=== PATIENT | male | born 1985 | race Two or more races ===

== ENCOUNTER 2017-01-15 16:52 | Emergency (ER) | payer SELFPAY | END 2017-01-15 17:00 | disposition left against medical advice (07) | LOC: ER 16:52 | DX: Z53.21 Procedure and treatment not carried out due to patient leaving prior to being seen by health care provider (principal) ==

== ENCOUNTER 2018-06-26 08:01 | Emergency (ER) | payer SELFPAY ==
[2018-06-26] MEDS ORDERED: CYCLOBENZAPRINE HCL 10 MG TABLET PO ONE (08:57)
[2018-06-26] MEDS ORDERED: OXYCODONE-ACETAMINOPHEN 5-325 MG TABLET PO ONE (08:57)
--- NOTE | 2018-06-26 09:04 | ER Document Report ---
HPI - HPI Patient complains to provider of: Low back pain Onset: Yesterday Onset/Duration: Gradual Quality of pain: Sharp Pain Level: 4 Context: Patient presents complaining of low back pain that started yesterday. Patient denies any injury fever or urinary symptoms at this time. Patient does have a history of back pain in the past and states that his pain today is in the location of his chronic back pain. Patient states that his pain is not usually this severe. Patient denies any history of IV drug use. Patient denies any urinary retention or incontinence. Associated Symptoms: denies: Fever, Headache Exacerbated by: Movement, Walking Relieved by: Denies Similar symptoms previously: Yes Recently seen / treated by doctor: No - ROS ROS below otherwise negative: Yes Systems Reviewed and Negative: Yes All other systems reviewed and negative - CONSTITUTIONAL Constitutional: DENIES: Fever, Chills - NEURO Neurology: DENIES: Headache, Weakness - GASTROINTESTINAL Gastrointestinal: DENIES: Nausea - MUSCULOSKELETAL Musculoskeletal: REPORTS: Extremity pain, Back Pain - DERM Skin Color: Normal Skin Problems: None Past Medical History - General Information source: Patient - Social History Smoking Status: Never Smoker Chew tobacco use (# tins/day): No Frequency of alcohol use: None Drug Abuse: None Family History: None Patient has suicidal ideation: No Patient has homicidal ideation: No Renal/ Medical History: Denies: Hx Peritoneal Dialysis Musculoskeletal Medical History: Reports Other - Low back pain Traumatic Medical History: Reports: Hx Fractures - hand Surgical Hx: Negative - Immunizations Hx Diphtheria, Pertussis, Tetanus Vaccination: Yes Vertical Provider Document - CONSTITUTIONAL Agree With Documented VS: Yes Exam Limitations: No Limitations General Appearance: WD/WN, No Apparent Distress - INFECTION CONTROL TRAVEL OUTSIDE OF THE [place] IN LAST 30 DAYS: No - HEENT HEENT: Atraumatic, Normocephalic - NECK Neck: Normal Inspection - RESPIRATORY Respiratory: Breath Sounds Normal, No Respiratory Distress - CARDIOVASCULAR Cardiovascular: Regular Rate, Regular Rhythm - GI/ABDOMEN Gastrointestinal: Abdomen Soft - BACK Back: Abnormal Inspection - Right lumbar paraspinal tenderness, right SI joint tenderness. No midline tenderness step-off or deformity. negative: CVA Tenderness-Right, CVA Tenderness-Left - MUSCULOSKELETAL/EXTREMETIES Musculoskeletal/Extremeties: MAEW, FROM - NEURO Level of Consciousness: Awake, Alert, Appropriate Motor/Sensory: No Motor Deficit - DERM Integumentary: Warm, Dry, No Rash Course - Re-evaluation Re-evalutation: 06/26/18 09:49 The patient presents with low back pain without signs of spinal cord compression , cauda equina syndrome, infection, aneurysm, or other serious etiology. The patient is neurologically intact. Given the extremely risk of these diagnoses further testing and evaluation for these possibilities does not appear to be indicated at this time. Patient has been instructed to return if the symptoms worsen or change in any way. - Vital Signs Vital signs: Temp Pulse Resp BP Pulse Ox 98.0 F 65 20 101/59 L 96 06/26/18 08:08 06/26/18 08:08 06/26/18 08:08 06/26/18 08:08 06/26/18 08:08 - Diagnostic Test Radiology reviewed: Reports reviewed Discharge - Discharge Clinical Impression: Low back pain Qualifiers: Chronicity: unspecified Back pain laterality: right Sciatica presence: unspecified whether sciatica present Qualified Code(s): M54.5 - Low back pain Condition: Stable Disposition: HOME, SELF-CARE Instructions: Ice Packs ([facility]), Low Back Pain ([facility]), Muscle Relaxers ([facility]) Additional Instructions: Return immediately for any new or worsening symptoms Followup with your primary care provider, call tomorrow to make a followup appointment Prescriptions: Cyclobenzaprine HCl [Flexeril 10 Mg Tablet] 10 mg PO TID #15 tablet Naproxen [Naprosyn 250 Nmg Tablet] 1 tab PO BID #14 tablet Forms: Return to Work Referrals: [facility] [Provider Group] - Follow up as needed [facility] [Provider Group] - Follow up as needed
--- NOTE | 2018-06-26 09:32 | RADIOLOGY REPORT (SQ) ---
EXAM DESCRIPTION: L SPINE WHOLE COMPLETED DATE/TIME: 06/26/2018 9:22 am REASON FOR STUDY: low back pain COMPARISON: 01/10/2015. NUMBER OF VIEWS: Five views including obliques. TECHNIQUE: AP, lateral, oblique, and sacral radiographic images acquired of the lumbar spine. LIMITATIONS: None. FINDINGS: MINERALIZATION: Normal. SEGMENTATION: Normal. No transitional anatomy. ALIGNMENT: Normal. VERTEBRAE: Maintained height. No fracture or worrisome bone lesion. DISCS: Preserved height. No significant osteophytes or end plate irregularity. POSTERIOR ELEMENTS: Pedicles and facets are intact. No pars defect or posterior arch defects. HARDWARE: None in the spine. PARASPINAL SOFT TISSUES: Normal. PELVIS: Intact as visualized. No fractures or worrisome bone lesions. SI joints intact. OTHER: No other significant finding. IMPRESSION: NORMAL 5 VIEW LUMBAR SPINE. TECHNICAL DOCUMENTATION: JOB ID: [id number] [employer]- All Rights Reserved Reading location - IP/workstation name: [email or web address]
[2018-06-26] MEDS ORDERED: LIDOCAINE 5% (700 MG) TRANSDERMAL ADH..PATCH TP ONE (09:47)
[2018-06-26 10:15] VITALS: BP 97/50
== END 2018-06-26 10:16 | disposition home or self-care (01) ==
LOC: ER 08:01
DX: M54.5 Low back pain (principal)
CPT/HCPCS: 72110; 99283

== ENCOUNTER 2019-01-31 14:40 | Emergency (ER) | payer SELFPAY ==
[2019-01-31 14:50] VITALS: BP 127/90
[2019-01-31] MEDS ORDERED: DIPH/PERTUSS(ACELL)/TETANUS VAC/PF 0.5 ML SYR (>=10YO) IM ONE (14:59)
[2019-01-31] MEDS ORDERED: OXYCODONE-ACETAMINOPHEN 5-325 MG TABLET PO ONE (14:59)
[2019-01-31] MEDS ORDERED: IBUPROFEN 800 MG TABLET PO ONE (15:00)
--- NOTE | 2019-01-31 15:12 | ER Document Report ---
ED Medical Screen (RME) - General Chief Complaint: Head Injury with LOC Stated Complaint: HEAD INJURY Time Seen by Provider: 01/31/19 14:56 Notes: 33-year-old male coming in today with head injury. He was stooped over try to get something out of the lower cabinet and came up and struck his head full strength against the cabinet door that was open above him. Questionable loss of consciousness per patient. Small gash to the top of his head. Last tetanus unknown. Also complaining of severe neck pain secondary to the injury. I have treated and performed a rapid initial assessment of this patient. A comprehensive ED assessment and evaluation of the patient, analysis of test results and completion of medical decision making process will be conducted by additional ED providers. PHYSICAL EXAMINATION: GENERAL: Well-appearing, well-nourished and in no acute distress. A&Ox4. Answers questions appropriately. LUNGS: Breath sounds clear to auscultation bilaterally and equal. No wheezes rales or rhonchi. HEART: Regular rate and rhythm without murmurs, rubs, gallops. Head: 1cm gash to the mid top of scalp. No active bleeding. Neuro: No focal deficit. TRAVEL OUTSIDE OF THE [place] IN LAST 30 DAYS: No - Related Data Allergies/Adverse Reactions: No Known Allergies Allergy (Verified 01/31/19 14:58) Past Medical History - Social History Chew tobacco use (# tins/day): No Frequency of alcohol use: None Drug Abuse: None Renal/ Medical History: Denies: Hx Peritoneal Dialysis Traumatic Medical History: Reports: Hx Fractures - hand - Immunizations Hx Diphtheria, Pertussis, Tetanus Vaccination: Yes Physical Exam - Vital signs Vitals: Temp Pulse Resp BP Pulse Ox 98.2 F 65 20 127/90 H 96 01/31/19 14:49 01/31/19 14:49 01/31/19 14:49 01/31/19 14:49 01/31/19 14:49 Course - Vital Signs Vital signs: Temp Pulse Resp BP Pulse Ox 98.2 F 65 20 127/90 H 96 01/31/19 14:49 01/31/19 14:49 01/31/19 14:49 01/31/19 14:49 01/31/19 14:49
--- NOTE | 2019-01-31 15:50 | RADIOLOGY REPORT (SQ) ---
EXAM DESCRIPTION: CT CERVICAL SPINE WITHOUT COMPLETED DATE/TIME: 01/31/2019 3:39 pm REASON FOR STUDY: head injury COMPARISON: None. TECHNIQUE: Axial images acquired through the cervical spine without intravenous contrast. Images re viewed with lung, soft tissue and bone windows. Reconstructed coronal and sagittal MPR images review ed. Images stored on PACS. All CT scanners at this facility use dose modulation, iterative reconstruction, and/or weight based d osing when appropriate to reduce radiation dose to as low as reasonably achievable (ALARA). [facility]: Dose Right [facility]: CareDose [facility]: Dose Right [facility]: Teradose 4D [facility]: [employer] RADIATION DOSE: CT Rad equipment meets quality standard of care and radiation dose reduction techniq ues were employed. CTDIvol: 17.0 mGy. DLP: 414 mGy-cm. mGy. LIMITATIONS: None. FINDINGS: ALIGNMENT: Anatomic. MINERALIZATION: Normal. VERTEBRAL BODIES: No fractures or dislocation. DISCS: No significant disc disease. FACETS, LATERAL MASSES, POSTERIOR ELEMENTS: No fractures. No dislocation. No acute findings. HARDWARE: None in the spine. VISUALIZED RIBS: No fractures. LUNG APICES AND SOFT TISSUES: No significant or acute findings. OTHER: No other significant finding. IMPRESSION: No fracture or static subluxation of the cervical spine. TECHNICAL DOCUMENTATION: JOB ID: [id number] Quality ID # [id number]: Final reports with documentation of one or more dose reduction techniques (e.g., Au tomated exposure control, adjustment of the mA and/or kV according to patient size, use of iterative reconstruction technique) 2010 [employer]- All Rights Reserved Reading location - IP/workstation name: [email or web address]
--- NOTE | 2019-01-31 15:52 | RADIOLOGY REPORT (SQ) ---
EXAM DESCRIPTION: CT HEAD WITHOUT COMPLETED DATE/TIME: 01/31/2019 3:40 pm REASON FOR STUDY: head injury COMPARISON: None. TECHNIQUE: Axial images acquired through the brain without intravenous contrast. Images reviewed wi th bone, brain and subdural windows. Additional sagittal and coronal reconstructions were generated. Images stored on PACS. All CT scanners at this facility use dose modulation, iterative reconstruction, and/or weight based d osing when appropriate to reduce radiation dose to as low as reasonably achievable (ALARA). [facility]: Dose Right [facility]: CareDose [facility]: Dose Right [facility]: Teradose 4D [facility]: [employer] RADIATION DOSE: CT Rad equipment meets quality standard of care and radiation dose reduction techniq ues were employed. CTDIvol: 53.2 mGy. DLP: 1124 mGy-cm. mGy. LIMITATIONS: None. FINDINGS: VENTRICLES: Normal size and contour. CEREBRUM: No masses. No hemorrhage. No midline shift. No evidence for acute infarction. Normal gra y/white matter differentiation. No areas of low density in the white matter. CEREBELLUM: No masses. No hemorrhage. No alteration of density. No evidence for acute infarction. EXTRAAXIAL SPACES: No fluid collections. No masses. ORBITS AND GLOBE: No intra- or extraconal masses. Normal contour of globe without masses. CALVARIUM: No fracture. PARANASAL SINUSES: No fluid or mucosal thickening. SOFT TISSUES: No mass or hematoma. OTHER: No other significant finding. IMPRESSION: No acute intracranial pathology. EVIDENCE OF ACUTE STROKE: NO. COMMENT: Quality ID # [id number]: Final reports with documentation of one or more dose reduction techniques (e.g., Automated exposure control, adjustment of the mA and/or kV according to patient size, use of iterative reconstruction technique) TECHNICAL DOCUMENTATION: JOB ID: [id number] [employer]- All Rights Reserved Reading location - IP/workstation name: [email or web address]
[2019-01-31] MEDS ORDERED: HYDROCODONE/ACETAMINOPHEN 5-325 MG (6 TAB/ER DISP) PO PRN (18:41)
--- NOTE | 2019-01-31 18:41 | ER Document Report ---
ED General - General Chief Complaint: Head Injury with LOC Stated Complaint: HEAD INJURY Time Seen by Provider: 01/31/19 14:56 Mode of Arrival: Ambulatory Information source: Patient TRAVEL OUTSIDE OF THE [place] IN LAST 30 DAYS: No - HPI Patient complains to provider of: Head and neck pain Onset: Just prior to arrival Onset/Duration: Sudden Quality of pain: Sharp Severity: Severe Associated symptoms: Other - Near syncope, neck pain, puncture wound Exacerbated by: Denies Relieved by: Denies Similar symptoms previously: No Recently seen / treated by doctor: No Notes: Patient is an otherwise healthy 33-year-old male coming in today with history of head injury and neck injury. He was bending over to get something out of a lower cabinet and stood up suddenly and struck complains of significant neck pain ever since the incident. - Related Data Allergies/Adverse Reactions: No Known Allergies Allergy (Verified 01/31/19 14:58) Past Medical History - General Information source: Patient - Social History Smoking Status: Never Smoker Chew tobacco use (# tins/day): No Frequency of alcohol use: None Drug Abuse: None Family History: None, Reviewed & Not Pertinent Patient has suicidal ideation: No Patient has homicidal ideation: No Renal/ Medical History: Denies: Hx Peritoneal Dialysis Traumatic Medical History: Reports: Hx Fractures - hand - Immunizations Hx Diphtheria, Pertussis, Tetanus Vaccination: Yes Review of Systems - Review of Systems Notes: Constitutional: No fevers. No chills. EENT: No eye redness. No eye pain. No ear pain. No sore throat. Cardiovascular: No chest pain. No palpitations. Respiratory: No cough. No shortness of breath. No respiratory distress. Gastrointestinal: No abdominal pain. No nausea, vomiting, or diarrhea. Genitourinary: Atraumatic. No lesions. No pain. No discharge. Musculoskeletal: Positive cervical spine pain Skin: Positive puncture wound scalp Lymphatic: No swollen lymph nodes. Neurologic: No headache. No syncope. Psychiatric: No suicidal or homicidal ideation. Physical Exam - Vital signs Vitals: Temp Pulse Resp BP Pulse Ox 98.2 F 65 20 127/90 H 96 01/31/19 14:49 01/31/19 14:49 01/31/19 14:49 01/31/19 14:49 01/31/19 14:49 - Notes Notes: General: Well-developed, well-nourished. In no acute distress. Non-toxic appearing. Cardiac: Well-perfused. Regular rate and rhythm. No murmurs, rubs, or gallops. Pulmonary: No respiratory distress. No cyanosis. Bilateral lung fiels are clear to auscultation. Abdominal: Non-distended. Non-rigid. Bowels sounds are present in all four quadrants. No guarding or rebound. HEENT: Less than 1 cm puncture wound to the top of scalp. Blood is dried. No active bleeding. Conjunctivae not reddened. No tearing. PERRL. EOMI. Orbits atraumatic. No periorbital swelling or erythema. Oropharynx is without erythema, swelling, or exudates. Neck: Midline tenderness to palpation without step-off Dermatologic: Warm with good turgor. No rash. Atraumatic. Chest: Atraumatic. No chest wall tenderness to palpation. Musculoskeletal: Moves all extremities well. No range of motion deficits. no muscular or joint tenderness. No paraspinal muscle tenderness. no midline spinal tenderness or step-off. Genitourinary: Examination deferred Neurologic: No gross neurologic deficits. Psychiatric: Normal mood. Course - Re-evaluation Re-evalutation: 01/31/19 18:38 CT head and C-spine negative. Tdap given. Wound on top of scalp does not need any suturing or stapling. Patient is still in considerable amount of pain. Will discharge him home with [place] pack - Vital Signs Vital signs: Temp Pulse Resp BP Pulse Ox 98.2 F 65 20 127/90 H 96 01/31/19 14:49 01/31/19 14:49 01/31/19 14:49 01/31/19 14:49 01/31/19 14:49 Discharge - Discharge Clinical Impression: Head injury Qualifiers: Encounter type: initial encounter Qualified Code(s): S09.90XA - Unspecified injury of head, initial encounter Neck strain Qualifiers: Encounter type: initial encounter Qualified Code(s): S16.1XXA - Strain of muscle, fascia and tendon at neck level, initial encounter Puncture wound of scalp Qualifiers: Encounter type: initial encounter Qualified Code(s): S01.03XA - Puncture wound without foreign body of scalp, initial encounter Condition: Good Disposition: HOME, SELF-CARE Instructions: Head Injury Precautions ([facility]), Muscle Strain ([facility]), Puncture Wound ([facility]) Additional Instructions: Keep the wound on the top of your head clean with soap and water. Recommend a small coating of triple antibiotic ointment to prevent infection. Use the provided pain medication for severe pain only. Mild to moderate pain try to manage with Tylenol or ibuprofen. Referrals: [facility] [Provider Group] - Follow up as needed
== END 2019-01-31 18:52 | disposition home or self-care (01) ==
LOC: ER 14:40
DX: S09.90XA Unspecified injury of head, initial encounter (principal); S16.1XXA Strain of muscle, fascia and tendon at neck level, initial encounter; S01.03XA Puncture wound without foreign body of scalp, initial encounter; R51 Headache; M54.2 Cervicalgia; W22.8XXA Striking against or struck by other objects, initial encounter
CPT/HCPCS: 99283; 90471; 70450; 72125; 90715; L0120

== ENCOUNTER 2019-09-02 15:34 | Emergency (ER) | payer SELFPAY ==
[2019-09-02 15:40] VITALS: BP 119/78
[2019-09-02] MEDS ORDERED: LIDOCAINE 5% (700 MG) TRANSDERMAL ADH..PATCH TP ONE (15:44)
[2019-09-02] MEDS ORDERED: KETOROLAC TROMETHAMINE 60 MG/2 ML SDV IM ONE (15:44)
--- NOTE | 2019-09-02 15:47 | ER Document Report ---
HPI - HPI Time Seen by Provider: 09/02/19 15:41 Pain Level: 5 Notes: Patient is a 34-year-old male with no significant past medical history who presents to the ED complaining of bilateral lower back pain x1-2 days. Patient states that bending twisting of the trunk make his pain worse. Pain will occasionally radiate to his right leg. He is eating and drinking without any difficulties. He is urinating normally and having normal bowel movements. He has not had any injections or procedures to his lower back. Denies any IV drug abuse. No other concerns or complaints. Denies any headache, fever, neck pain, changes in vision/speech/mentation/hearing, URI, sore throat, chest pain, palpitations, syncope, cough, shortness of breath, wheeze, dyspnea, abdominal pain, nausea/vomiting/diarrhea, urinary retention, dysuria, hematuria, loss of control of bowel or bladder, saddle anesthesia, muscle paralysis/weakness, or rash. - ROS Systems Reviewed and Negative: Yes All other systems reviewed and negative - REPRODUCTIVE Reproductive: DENIES: : Past Medical History - Social History Smoking Status: Unknown if Ever Smoked Frequency of alcohol use: None Drug Abuse: None Family History: None, Reviewed & Not Pertinent Patient has suicidal ideation: No Patient has homicidal ideation: No Renal/ Medical History: Denies: Hx Peritoneal Dialysis Traumatic Medical History: Reports: Hx Fractures - hand - Immunizations Hx Diphtheria, Pertussis, Tetanus Vaccination: Yes Vertical Provider Document - CONSTITUTIONAL Agree With Documented VS: Yes Notes: PHYSICAL EXAMINATION: GENERAL: Well-appearing, well-nourished and in no acute distress. LUNGS: Breath sounds clear to auscultation bilaterally and equal. No wheezes rales or rhonchi. HEART: Regular rate and rhythm without murmurs, rubs, gallops. ABDOMEN: Soft, nontender, nondistended abdomen. No guarding, no rebound. Normal bowel sounds present. No CVA tenderness bilaterally. No pulsatile mass Musculoskeletal: LE's b/l: FROM to passive/active. Strength 5+/5. No deficits noted. No bony tenderness of extremities. Back: FROM to passive/active. Strength 5+/5. No vertebral point tenderness, stepoffs, or deformities. No other bony tenderness, erythema, swelling, or ecchymosis. SLR negative b/l. + Reproducible tenderness to the L-paraspinal mm b/l. Mild spasming. No SI jt tenderness. No foot drop Extremities: No cyanosis, clubbing, or edema b/l. Peripheral pulses 2+. Capillary refill less than 2 seconds. NEUROLOGICAL: Normal speech, normal gait. Normal sensory, motor exams. Reflexes 2+ b/l. PSYCH: Normal mood, normal affect. SKIN: Warm, Dry, normal turgor, no rashes or lesions noted. - INFECTION CONTROL TRAVEL OUTSIDE OF THE [place] IN LAST 30 DAYS: No Course - Re-evaluation Re-evalutation: 09/02/19 15:46 Patient is an afebrile, well-hydrated,34-year-old male who presents to the ED with bilateral low back pain. Vitals are acceptable. PE is otherwise unremarkable for any focal neurological deficits. Patient was given Toradol and a Lidoderm patch. He has no significant tachycardia, tachypnea, or hypoxia. He is nontoxic-appearing and is tolerating p.o. without difficulties. There are no signs of infection. No other red flag symptoms noted. No other labs or imaging warranted at this time based on H&P. Low suspicion for any meningitis, fracture, expanding/ruptured AAA, cauda equina syndrome, epidural mass lesion/abscess, herniated disc causing severe spinal stenosis, or other systemic infection at this time. Patient is aware that his condition can change from initial presentation and that he needs monitor symptoms closely for any acute changes. I will send him home with a prescription for Robaxin and Motrin. Conservative measures otherwise for symptoms. Recheck with your PCM in 3-5 days. Consider consult with orthopedic/physical therapy. Return to the ED with any worsening/concerning symptoms otherwise as reviewed discharge. Patient is in agreement. - Vital Signs Vital signs: Temp Pulse Resp BP Pulse Ox 98.1 F 74 18 119/78 100 09/02/19 15:39 09/02/19 15:39 09/02/19 15:39 09/02/19 15:39 09/02/19 15:39 Discharge - Discharge Clinical Impression: Low back pain Qualifiers: Chronicity: acute Back pain laterality: bilateral Sciatica presence: unspecified whether sciatica present Qualified Code(s): M54.5 - Low back pain Condition: Stable Disposition: HOME, SELF-CARE Instructions: Low Back Pain ([facility]), Muscle Relaxers ([facility]) Additional Instructions: Rest, Ice Tylenol/ibuprofen as needed Light stretches daily Strength exercises as able Moist heat and massage may help F/u with your PCP in 3-5 days for a recheck Consider consult(s) with Orthopedics/physical therapy for ongoing/worsening symptoms Return to the ED with any worsening symptoms and/or development of fever, headache, chest pain, palpitations, syncope, shortness of breath, trouble breathing, abdominal pain, n/v/d, blood in stool/urine, loss of control of bowel/bladder, urinary retention, muscle weakness/paralysis, saddle anesthesia, numbness/tingling, or other worsening symptoms that are concerning to you. Prescriptions: Ibuprofen [Motrin 800 mg Tablet] 800 mg PO Q8H PRN #15 tab PRN Reason: Methocarbamol [Robaxin 750 mg Tablet] 750 mg PO TID PRN #10 tablet PRN Reason: Forms: Return to Work Referrals: [facility] [Provider Group] - Follow up as needed
== END 2019-09-02 16:18 | disposition home or self-care (01) ==
LOC: ER 15:34
DX: M54.5 Low back pain (principal)
CPT/HCPCS: 99283; 96372; J1885

== ENCOUNTER 2019-12-16 20:26 | Emergency (ER) | payer SELFPAY ==
--- NOTE | 2019-12-16 21:45 | ER Document Report ---
Entered by EDDIE CARRENO SCRIBE 12/16/192118 Acting as scribe for:JOIE DEMPSEY IV, MD ED GI/ - General Chief Complaint: Testicular Pain Stated Complaint: TESTICULAR PAIN Time Seen by Provider: 12/16/19 20:57 Mode of Arrival: Ambulatory Information source: Patient Notes: This 34 year old male patient presents to the ED today with complaints of sudden onset severe right testicular pain that started x3 hours prior to arrival. Patient states that the veins in the right testicle appear swollen and bulging. He notes that he is concerned for testicular torsion. Denies burning with urination or any other urinary symptoms. Denies fever, penile discharge, or trauma. He admits that x2-3 days ago, he noticed that his sperm was a yellow/orange color, which is abnormal for him. He states that he has only 1 partner who is his and that they do engage in anal intercourse. TRAVEL OUTSIDE OF THE [place] IN LAST 30 DAYS: No - Related Data Allergies/Adverse Reactions: No Known Allergies Allergy (Verified 12/16/19 20:38) Past Medical History - General Information source: Patient, [facility] Records - Social History Smoking Status: Former Smoker Cigarette use (# per day): No Chew tobacco use (# tins/day): No Smoking Education Provided: No Drug Abuse: Marijuana Family History: Reviewed & Not Pertinent Patient has suicidal ideation: No Patient has homicidal ideation: No Traumatic Medical History: Reports: Hx Fractures - hand Surgical Hx: Negative - Immunizations Hx Diphtheria, Pertussis, Tetanus Vaccination: Yes Review of Systems - Review of Systems Constitutional: See HPI. denies: Fever EENT: No symptoms reported Cardiovascular: No symptoms reported Respiratory: No symptoms reported Gastrointestinal: No symptoms reported Genitourinary: See HPI. denies: Burning, Dysuria, Frequency, Hematuria Male Genitourinary: See HPI, Testicular pain. denies: Penile discharge Musculoskeletal: No symptoms reported Skin: No symptoms reported Hematologic/Lymphatic: No symptoms reported Neurological/Psychological: No symptoms reported -: Yes All other systems reviewed and negative Physical Exam - Vital signs Vitals: Temp Pulse Resp BP Pulse Ox 97.7 F 72 16 113/59 L 96 12/16/19 20:31 12/16/19 20:31 12/16/19 20:31 12/16/19 20:31 12/16/19 20:31 - General General appearance: Appears well, Alert In distress: None - HEENT Head: Normocephalic, Atraumatic Eyes: Normal Pupils: PERRL - Respiratory Respiratory status: No respiratory distress Chest status: Nontender Breath sounds: Normal Chest palpation: Normal - Cardiovascular Rhythm: Regular Heart sounds: Normal auscultation Murmur: No Friction rub: No Gallop: None auscultated - Abdominal Inspection: Normal Distension: No distension Bowel sounds: Normal Tenderness: Nontender - Abdomen soft Organomegaly: No organomegaly - Genitourinary Cremasteric reflex: Normal Notes: Right inferior testicle is tender to palpation. No hernia or erythema appreciated. No discharge noted from urethral meatus. Circumcised. - Back Back: Normal, Nontender - Extremities General upper extremity: Normal inspection General lower extremity: Normal inspection - Neurological Neuro grossly intact: Yes - Psychological Associated symptoms: Normal affect, Normal mood - Skin Skin Temperature: Warm Skin Moisture: Dry Skin Color: Normal Course - Re-evaluation Re-evalutation: 12/16/19 22:39 Results of ED MSE discussed with patient. All questions were answered. Emergency signs and symptoms, reasons to return to the emergency department discussed with patient. - Vital Signs Vital signs: Temp Pulse Resp BP Pulse Ox 98.4 F 74 18 107/57 L 100 12/16/19 22:22 12/16/19 22:22 12/16/19 22:22 12/16/19 22:22 12/16/19 22:22 - Laboratory Laboratory results interpreted by me: 12/16/19 21:47 Urine Protein 30 H - Diagnostic Test Radiology reviewed: Reports reviewed Discharge - Discharge Clinical Impression: Epididymitis Condition: Good Disposition: HOME, SELF-CARE Instructions: Epididymitis ([facility]) Additional Instructions: Return to the Emergency Department without delay if any worse. HOME CARE INSTRUCTIONS & INFORMATION: Thank you for choosing us for your medical needs. We hope you're satisfied with the care you received. After you leave, you must properly care for your problem and, at the same time, observe its progress. Any condition can change. Some illnesses can change rapidly over hours or days. If your condition worsens, return to the Emergency Department or see your physician promptly. ABOUT YOUR X-RAYS AND EKG'S: If you had an EKG or X-rays taken, they have been read by the Emergency Physician. The X-rays and EKG's will also be read by a Radiologist or Tail Board Worker within 24 hours. If discrepancies are noted, you will be notified by telephone. Please be certain the ED has a correct telephone number & address where you can be reached. Also, realize that some fractures or abnormalities do not show up on initial X-rays. If your symptoms continue, see your physician. ABOUT YOUR LABORATORY TEST: If you had laboratory tests, the results have been reviewed by the Emergency Physician. Some test results (for example cultures) may not be available for several days. You will be contacted if any test result shows you need additional treatment. Please be certain the ED has a correct telephone number and address where you can be reached. ABOUT YOUR MEDICATIONS: You will receive instructions on how to take your medicine on the prescription label you receive. Additional information may be provided by the Pharmacy. If you have questions afterwards, call the ED for clarification or further instructions. Some prescribed medications may cause drowsiness. Do not perform tasks such as driving a car or operating machinery without consulting your Pharmacist. If you feel you need a refill of pain medication, your condition will need re-evaluation. Please do not call for a refill of any medication. ABOUT YOUR SIGNATURE: Signature of this document acknowledges to followin. Understanding that you received emergency treatment and that you may be released before al medical problems are known or treated. Please be certain the ED has a correct phone number & address where you can be reached. 2. Acknowledgement that you will arrange for follow-up care as recommended. 3. Authorization for the Emergency Physician to provide information to your follow-up Physician in order to maximize your care. AT ANY TIME, IF YOUR SYMPTOMS CHANGE SIGNIFICANTLY OR WORSEN OR YOU DEVELOP NEW SYMPTOMS, RETURN TO THE EMERGENCY DEPARTMENT IMMEDIATELY FOR RE-EVALUATION. OUR GOAL IS TO PROVIDE EXCELLENT MEDICAL CARE! WE HOPE THAT WE HAVE MET YOUR EXPECTATIONS DURING YOUR EMERGENCY DEPARTMENT VISIT AND THAT YOU FEEL YOU HAVE RECEIVED EXCELLENT CARE! Prescriptions: Levofloxacin [Levaquin 500 mg Tablet] 500 mg PO DAILY 9 Days #9 tablet Referrals: YUMIKO HAQUE MD [HONORARY] - Follow up as needed I personally performed the services described in the documentation, reviewed and edited the documentation which was dictated to the scribe in my presence, and it accurately records my words and actions.
--- NOTE | 2019-12-16 21:58 | RADIOLOGY REPORT (SQ) ---
EXAM DESCRIPTION: US SCROTUM COMPLETED DATE/TME: 12/16/2019 00:00 CLINICAL HISTORY: 34 years, Male, PAIN COMPARISON: None. TECHNIQUE: Axial 2-D grayscale images of the scrotum were acquired. Doppler was utilized. LIMITATIONS: None. FINDINGS: Right testicle measures 4.6 x 2.2 x 3.1 cm in size. It demonstrates normal echogenicity and normal low resistance arterial waveforms. In area of localized heterogenous echogenicity is noted just inferior to the right testicle with associated hyperemia. It is uncertain whether this is located about the expected course of epididymal body and tail. However, the right epididymal head appears normal, measuring 0.9 x 0.8 x 1.2 cm in size. Left testicle measures 4.2 x 1.9 x 2.8 cm in size. It demonstrates normal echogenicity and normal low resistance arterial waveforms. Left epididymal head measures 1.0 x 0.9 x 1.0 cm in size. IMPRESSION: Findings indicate right epididymitis, particularly involving the epididymal body and tail. Otherwise, normal sonographic appearance of the testicles. copyright 2010 [employer]- All Rights Reserved
[2019-12-16 22:03] LABS: AMORPHOUS SEDIMENT,URINE TRACE /HPF; APPEARANCE,URINE CLOUDY; BILIRUBIN,URINE NEGATIVE (NEGATIVE); COLOR,URINE YELLOW; GLUCOSE, URINE NEGATIVE (NEGATIVE); KETONES,URINE NEGATIVE (NEGATIVE); LEUKOCYTE ESTERASE,URINE NEGATIVE (NEGATIVE); NITRITE,URINE NEGATIVE (NEGATIVE); PROTEIN,URINE 30 mg/dL (NEGATIVE); URINE SPECIFIC GRAVITY 1.021; UROBILINOGEN,URINE NEGATIVE mg/dL (<2.0)
[2019-12-16] MEDS ORDERED: CEFTRIAXONE INJ 250 MG VIAL IM ONE (22:37)
[2019-12-16] MEDS ORDERED: LEVOFLOXACIN 750 MG TABLET PO ONE (22:37)
[2019-12-16] MEDS ORDERED: LIDOCAINE 1% INJ (10 MG/ML) 10 ML MDV INJ ONE (22:56)
[2019-12-16 23:23] VITALS: BP 113/63
[2019-12-16 23:26] LABS: CHLAM PCR NOT DETECTED (NOT DETECT)
== END 2019-12-16 23:23 | disposition home or self-care (01) ==
LOC: ER 20:26
DX: N45.1 Epididymitis (principal); N50.811 Right testicular pain
CPT/HCPCS: 99284; 96372; 81001; 87491; 87591; 76870; 93976; J0696